=== PATIENT | female | born 1975 | race Caucasian/White ===

== ENCOUNTER 2018-09-10 16:55 | Inpatient (IN) | payer OTHER ==
[2018-09-10] MEDS: FLAGYL 500 MG IVPB 500 MG/100 ML BAG IV SCH ×2 (18:39→23:55)
[2018-09-10] MEDS: Lactated Ringers 1,000 ML IV SCH (18:39)
[2018-09-10] MEDS: Zofran 4 MG/2 ML VIAL IV PRN ×2 (19:49→23:55)
[2018-09-11] MEDS: TYLENOL 325 MG PO PRN ×2 (01:38→14:15)
[2018-09-11] MEDS: Lactated Ringers 1,000 ML IV SCH ×2 (05:42→16:52)
[2018-09-11] MEDS: FLAGYL 500 MG IVPB 500 MG/100 ML BAG IV SCH ×3 (05:42→17:00)
[2018-09-11] MEDS: Zofran 4 MG/2 ML VIAL IV PRN ×3 (05:43→16:53)
--- NOTE | 2018-09-11 08:08 | PCM.HP.ADD ---
Addendum to History & Physical - History & Physical Addendum Addendum to History & Physical: This certifies that the History & Physical in the electronic chart reflects the current health status of the patient. If there are changes in the H&P these changes/exceptions are listed as follows.
--- NOTE | 2018-09-11 08:42 | PCM.NOTE ---
Date and Time: 09/11/18 0839 Subjective Assessment: She has had no BMs since admission but has not eaten yet. Yesterday was fine until lunch then had diarrhea for 2.5 hours. adore po. afebrile. The flagyl gave her a headache the first 2 doses but after that has been fine. - Review of Systems Constitutional: No Fever Musculoskeletal: Back Pain (improved since yesterday) Objective Exam General Appearance: no apparent distress, alert Neurologic Exam: oriented x 3, cooperative Skin Exam: normal color, warm, dry, No rash Eye Exam: eyes nml inspection Respiratory Exam: normal breath sounds, lungs clear, No crackles/rales, No rhonchi, No wheezing Cardiovascular Exam: regular rate/rhythm, normal heart sounds, No murmur Gastrointestinal/Abdomen Exam: soft, normal bowel sounds, No tenderness, No distention, No mass, No guarding, No rebound Extremity Exam: normal inspection, No pedal edema, No swelling OBJECTIVE DATA Vital Signs: Vital Signs - 24 hr Temp Pulse Resp BP Pulse Ox 09/11/18 08:00 97.9 F 54 L 20 113/75 99 09/11/18 04:00 97.7 F 65 18 103/59 99 09/11/18 00:22 98.4 F 62 18 129/72 98 09/10/18 19:53 98.4 F 66 18 139/85 99 09/10/18 18:13 98.1 F 66 18 139/85 99 Pain Assessment - Last Documented Pain Intensity 8 Pain Scale Used 0-10 Pain Scale Intake and Output: Intake & Output 09/08/18 09/09/18 09/10/18 09/11/18 11:59 11:59 11:59 11:59 Intake Total 962 Balance 962 Weight 73.6 kg Radiology Exams: Radiology Procedures Category Date Time Status ABDOMEN 2 VIEW Routine Exams 09/10/18 18:45 Taken Assessment/Plan (1) Clostridium difficile diarrhea Current Visit: Yes Status: Acute Assessment & Plan: Her WBC were wnl yesterday. Has been on home dose of flagyl but unable to tolerate even TID. Tried po vancomycin but passed out and had hallucinations. Dificid was prescribed but cost her $400 so she was unable to get it. Code(s): A04.72 - ENTEROCOLITIS D/T CLOSTRIDIUM DIFFICILE, NOT SPCF RECUR
--- NOTE | 2018-09-11 08:44 | XRAY ---
Indication: C. difficile. Comparison: July 24, 2011. 2 views of the abdomen nonacute nonobstructed with mild fecal debris in the left hemicolon and cholecystectomy clips. No focal bowel dilatation or bowel wall thickening. Solid organs unremarkable. Osseous structures intact with mild degenerative changes of the lower lumbar spine. Lung bases are clear. Impression: Negative abdomen.
[2018-09-11] MEDS ORDERED: Ambien 10 MG PO PRN (09:37)
[2018-09-11] MEDS ORDERED: Ambien 5 MG Tablet PO PRN (09:39)
[2018-09-11] MEDS ORDERED: MEDICATION INTERVENTION MC SCH (09:45)
[2018-09-11] MEDS ORDERED: AMPHETAMINE PO SCH (10:00)
[2018-09-11] MEDS ORDERED: DEXTROAMPHETAMINE PO SCH (10:00)
[2018-09-11 11:34] LABS: Appearance SLIGHTLY CLOUDY (CLEAR); Bacteria RARE /HPF (NEGATIVE); Bilirubin NEGATIVE (NEGATIVE); Blood NEGATIVE Ery/ul (0-5); Epithelial Cells RARE /HPF (FEW); Glucose NEGATIVE (NEGATIVE); Ketones NEGATIVE (NEGATIVE); Leukocyte Esterase NEGATIVE (NEGATIVE); Mucus SLIGHT /HPF (NEGATIVE); Nitrite NEGATIVE (NEGATIVE); Protein,Urine Dip NEGATIVE (Negative); Specific Gravity 1.014 (1.005-1.025); Urobilinogen NEGATIVE mg/dL (0-1)
[2018-09-12] MEDS: FLAGYL 500 MG IVPB 500 MG/100 ML BAG IV SCH ×2 (00:20→05:36)
[2018-09-12] MEDS: Lactated Ringers 1,000 ML IV SCH (03:21)
[2018-09-12] MEDS: Zofran 4 MG/2 ML VIAL IV PRN (05:53)
[2018-09-12 06:20] LABS: BASOPHIL % 0.4 % (0.0-0.4); Basophil (Absolute #) 0.02 (0-0.4); Eosinophil % 2.9 % (0.00-5.0); Eosinophil (Absolute #) 0.14 (0-0.5); Granulocyte Absolute (ANC) 1.97 (1.4-6.9); Granulocytes % 41.4 % (36.0-66.0); Hematocrit 34.7 % (35-47); Hemoglobin 11.3 gm/dl (12.0-16.0); Lymphocyte (Absolute #) 2.05 (1.0-4.6); Lymphocytes % 43.1 % (24.0-44.0); Mean Cell Volume 90.6 fl (78-100); Mean Corpuscular Hemoglobin 29.5 pg (26-32); Mean Corpuscular Hgb Concent. 32.6 g/dl (32-36); Mean Platelet Volume 9.8 fl (6-9.5); Monocyte (Absolute #) 0.58 (0.0-1.3); Monocytes % 12.2 % (0.0-12.0); Platelet Count 282 K/mm3 (150-450); Red Blood Count 3.83 M/mm3 (4.1-5.4); Red Cell Distribution Width 14.1 % (11.5-14.0); White Blood Count 4.8 K/mm3 (4.0-10.5)
[2018-09-12 06:33] LABS: ANION GAP 10.6 MEQ/L (5-15); BLOOD UREA NITROGEN 6 mg/dL (7-17); CHLORIDE 107 mmol/L (98-107); Calcium 8.8 mg/dL (8.4-10.2); Carbon Dioxide 25 mmol/L (22-30); Creatinine 1 0.64 mg/dL (0.52-1.04); Glucose 88 mg/dL (74-106); MAGNESIUM 1.9 mg/dL (1.6-2.3); SODIUM 139 mmol/L (137-145)
[2018-09-12 07:06] VITALS: BP 107/55; PULSE 55; O2SAT 98
[2018-09-12] MEDS: TYLENOL 325 MG PO PRN (09:44)
--- NOTE | 2018-09-12 11:20 | PCM.DS ---
Discharge Summary Date of Admission: 09/10/18 17:47 Admitting Physician: CA MARINO Primary Care Provider: CA MARINO Allergies Allergies rabeprazole sodium [From Aciphex] Allergy (Mild, Verified 04/25/16 16:21) latex Allergy (Verified 04/25/16 16:21) pain meds Adverse Reaction (Severe, Uncoded 04/25/16 16:21) Nausea any pain med makes her vomit, and akes her [facility] Summary - Hospital Course Hospital Course: Pt is 42 yo female pt of mine who was admitted from office with C. diff; she was having diarrhea while on flagyl, but was only able to tolerated it BID. Tried to rx dificid which was too expensive. While in hospital on flagyl QID has been eating and having no diarrhea. Unable to tolerate po vancomycin at home. Will send home on po flagyl with zofran po as well. 7days of therapy. f /u with me early next week in ofc. - Vitals & Intake/Output Vital Signs: Vital Signs Temperature 98.3 F 09/12/18 07:05 Pulse Rate 55 L 09/12/18 07:05 Respiratory Rate 18 09/12/18 07:05 Blood Pressure 107/55 09/12/18 07:05 O2 Sat by Pulse Oximetry 98 09/12/18 07:05 Intake & Output: Intake & Output 09/09/18 09/10/18 09/11/18 09/12/18 11:59 11:59 11:59 11:59 Intake Total 962 4220 Output Total 1600 Balance 962 2620 Weight 73.6 kg 73.5 kg - Lab Result Diagrams: 09/12/18 05:40 09/12/18 05:40 Lab Results-Last 24 Hrs: Lab Results-Last 24 Hours 09/11/18 09/12/18 09/12/18 Range/Units 11:00 05:40 05:40 WBC 4.8 (4.0-10.5) K/mm3 RBC 3.83 L (4.1-5.4) M/mm3 Hgb 11.3 L (12.0-16.0) gm/dl Hct 34.7 L (35-47) % MCV 90.6 (78-100) fl MCH 29.5 (26-32) pg MCHC 32.6 (32-36) g/dl RDW 14.1 H (11.5-14.0) % Plt Count 282 (150-450) K/mm3 MPV 9.8 H (6-9.5) fl Gran % 41.4 (36.0-66.0) % Eos # (Auto) 0.14 (0-0.5) Absolute Lymphs (auto) 2.05 (1.0-4.6) Absolute Monos (auto) 0.58 (0.0-1.3) Lymphocytes % 43.1 (24.0-44.0) % Monocytes % 12.2 H (0.0-12.0) % Eosinophils % 2.9 (0.00-5.0) % Basophils % 0.4 (0.0-0.4) % Absolute Granulocytes 1.97 (1.4-6.9) Basophils # 0.02 (0-0.4) Sodium 139 (137-145) mmol/L Potassium 4.0 D (3.5-5.1) mmol/L Chloride 107 (98-107) mmol/L Carbon Dioxide 25 (22-30) mmol/L Anion Gap 10.6 (5-15) MEQ/L BUN 6 L (7-17) mg/dL Creatinine 0.64 (0.52-1.04) mg/dL Estimated GFR > 60.0 ML/MIN Glucose 88 (74-106) mg/dL Calcium 8.8 (8.4-10.2) mg/dL Magnesium 1.9 (1.6-2.3) mg/dL Urine Color YELLOW (YELLOW) Urine Appearance SLIGHTLY CLOUDY (CLEAR) Urine pH 7.0 (5-6) Ur Specific Ell[place] 1.014 (1.005-1.025) Urine Protein NEGATIVE (Negative) Urine Ketones NEGATIVE (NEGATIVE) Urine Blood NEGATIVE (0-5) Carrillo/ul Urine Nitrite NEGATIVE (NEGATIVE) Urine Bilirubin NEGATIVE (NEGATIVE) Urine Urobilinogen NEGATIVE (0-1) mg/dL Ur Leukocyte Esterase NEGATIVE (NEGATIVE) Urine WBC (Auto) NONE (0-5) /HPF Urine RBC (Auto) NONE (0-2) /HPF U Epithel Cells (Auto) RARE (FEW) /HPF Urine Bacteria (Auto) RARE (NEGATIVE) /HPF Urine Mucus (Auto) SLIGHT (NEGATIVE) /HPF Urine Culture Reflexed NO (NO) Urine Glucose NEGATIVE (NEGATIVE) mg/dL - Radiology Exams Ordered Rad Exams-Entire Visit: Radiology Procedures Category Date Time Status ABDOMEN 2 VIEW Routine Exams 09/10/18 18:45 Completed Discharge Exam General Appearance: no apparent distress, No obese Neurologic Exam: alert, oriented x 3 Skin Exam: normal color, warm, dry, No rash Respiratory Exam: normal breath sounds, lungs clear, No respiratory distress, No crackles/rales, No rhonchi, No wheezing Cardiovascular Exam: regular rate/rhythm, normal heart sounds, No murmur Gastrointestinal/Abdomen Exam: soft, normal bowel sounds, No tenderness, No distention, No mass, No guarding, No rebound Extremity Exam: normal inspection, No pedal edema, No swelling Final Diagnosis/Problem List - Final Discharge Diagnosis/Problem (1) Clostridium difficile diarrhea Current Visit: Yes Status: Acute Assessment & Plan: doing much better, I think she just needed to be adequately treated with flagyl. Home on flagyl 500 po QID with zofran prn. x 7d. Code(s): A04.72 - ENTEROCOLITIS D/T CLOSTRIDIUM DIFFICILE, NOT SPCF RECUR - Discharge Disposition: Home, Self-Care Condition: Stable Prescriptions: New Metronidazole 500 mg [Flagyl 500 MG] 500 mg PO QID #28 tablet Ondansetron ODT 4 MG [Zofran Odt 4 mg] 4 mg PO Q6H PRN PRN #30 tab.rapdis PRN Reason: Nausea Continue Zolpidem Tartrate [Ambien] 2.5 mg PO HS PRN PRN Reason: Insomnia Dextroamphetamine/Amphetamine [Adderall 15 mg Tablet] 30 mg PO DAILY Instructions: Clostridium difficile Follow up with: CA MARINO [Primary Care Provider] - 09/23/18 10:45 am Forms: Discharge Instructions
== END 2018-09-12 11:45 | disposition home or self-care (01) | DRG 373 ==
LOC: PREOBSVTOIN 17:04 → MED SURG 17:47
PROVIDERS: ADMIT Family Medicine; ATTEND Family Medicine
DX: A04.72 Enterocolitis due to Clostridium difficile, not specified as recurrent (principal); M54.5 Low back pain; L03.032 Cellulitis of left toe; Z79.899 Other long term (current) drug therapy
CPT/HCPCS: 36415; 74021; 80048; 81001; 83735; 85025; J2405; A9270-GY

== ENCOUNTER 2020-10-21 14:29 | Emergency (ER) | payer OTHER ==
[2020-10-21] MEDS ORDERED: Zofran 4 MG/2 ML VIAL IV ONE (14:57)
[2020-10-21] MEDS ORDERED: BABY ASPIRIN 81 MG CHEW PO ONE (14:57)
[2020-10-21] MEDS ORDERED: MORPHINE SULFATE 2 MG INJ IV ONE (14:57)
[2020-10-21] MEDS ORDERED: Pepcid 20 MG VIAL IV ONE ×2 (14:57→15:05)
[2020-10-21] MEDS ORDERED: DUONEB 0.5-3 MG/3 ml Neb IH ONE ×2 (14:59→15:12)
[2020-10-21] MEDS ORDERED: Zofran 4 MG/2 ML VIAL ONE (15:05)
[2020-10-21] MEDS ORDERED: BABY ASPIRIN 81 MG CHEW ONE (15:05)
[2020-10-21] MEDS ORDERED: MORPHINE SULFATE 2 MG INJ ONE (15:05)
--- NOTE | 2020-10-21 15:21 | XRAY ---
Indication: Chest pain. Comparison: June 16, 2019. Portable chest less inflated again demonstrating normal heart, lungs, and bony thorax.
[2020-10-21 15:27] LABS: ALBUMIN 4.2 g/dL (3.5-5.0); ALKALINE PHOSPHATASE 53 U/L (38-126); ANION GAP 12.9 MEQ/L (5-15); BLOOD UREA NITROGEN 7 mg/dL (7-17); CHLORIDE 106 mmol/L (98-107); CK-Creatinine Phosphokinase 49 U/L (30-135); Carbon Dioxide 23 mmol/L (22-30); Creatinine 1 0.63 mg/dL (0.52-1.04); EST GLOMERULAR FILTRATION RATE > 60.0 ML/MIN; Glucose 99 mg/dL (74-106); NT PRO BNP 65.3 pg/mL (0-450); Potassium 3.8 mmol/L (3.5-5.1); SGOT/AST 43 U/L (14-36); SGPT/ALT 30 U/L (0-35); SODIUM 138 mmol/L (137-145); Total Protein 7.2 g/dL (6.3-8.2)
[2020-10-21 15:30] LABS: Absolute Neutrophil Ct (ANC) 2.67 (1.4-6.9); BASOPHIL % 0.4 % (0.0-0.4); Basophil (Absolute #) 0.02 (0-0.4); Eosinophil % 2.4 % (0.00-5.0); Eosinophil (Absolute #) 0.13 (0-0.5); Hematocrit 37.4 % (35-47); Lymphocyte (Absolute #) 1.84 (1.0-4.6); Lymphocytes % 34.5 % (24.0-44.0); Mean Cell Volume 90.1 fl (78-100); Mean Corpuscular Hemoglobin 28.9 pg (26-32); Mean Corpuscular Hgb Concent. 32.1 g/dl (32-36); Mean Platelet Volume 10.1 fl (7.5-11.0); Monocyte (Absolute #) 0.68 (0.0-1.3); Monocytes % 12.7 % (0.0-12.0); Platelet Count 308 K/mm3 (150-450); Red Blood Count 4.15 M/mm3 (4.1-5.4); Red Cell Distribution Width 13.9 % (11.5-14.0); White Blood Count 5.3 K/mm3 (4.0-10.5)
--- NOTE | 2020-10-21 18:48 | ERPHSYRPT ---
- History of Present Illness Time Seen by Provider: 10/21/20 14:31 Historian: patient Exam Limitations: no limitations Patient Subjective Stated Complaint: Pt c/o of chest pain that began last night Triage Nursing Assessment: Pt brought to the ER by her , hypertensive, rates chest tightness as 7/10, pulses normal, skin n/w/d, no heart hx, doesn't appear to be in any distress Physician History: 44 years old female presented in the ER with chief complaint of substernal/central chest pain since yesterday. Patient report initially her blood pressure was elevated to 140s but her usual blood pressure is around 100 systolic. Pain was initially mild but gradually getting worse, dull to sharp in nature, nonradiating without any significant aggravating or relieving factors. Denies any associated palpitations or shortness of breath. No history of CAD in the past. No tobacco use. Denies any lower extremity swelling, long travel or hormone use. Timing/Duration: yesterday, gradual onset, worse Activities at Onset: rest Quality: sharpness Location: central Chest Pain Radiation: no radiation Severity of Pain-Max: moderate Severity of Pain-Current: moderate Modifying Factors: Improves With: nothing Associated Symptoms: denies symptoms Prior Chest Pain/Cardiac Workup: no prior chest pain, no prior cardiac workup Nitro Today/Relief: no nitro taken today Aspirin Treatment Today: no aspirin today Allergies/Adverse Reactions: rabeprazole sodium [From Aciphex] Allergy (Mild, Verified 10/21/20 14:37) latex Allergy (Verified 10/21/20 14:37) pain meds Adverse Reaction (Severe, Uncoded 10/21/20 14:37) Nausea any pain med makes her vomit, and akes her loopy Home Medications: Dextroamphetamine/Amphetamine [Adderall 15 mg Tablet] 30 mg PO DAILY 04/25/16 [History] Zolpidem Tartrate [Ambien] 2.5 mg PO HS PRN 04/25/16 [History] Hx Tetanus, Diphtheria Vaccination/Date Given: Yes (up to date) Hx Influenza Vaccination/Date Given: No Hx Pneumococcal Vaccination/Date Given: No Travel Risk - International Travel Have you traveled outside of the country in past 3 weeks: No - Coronavirus Screening Are you exhibiting any of the following symptoms?: No Close contact with a COVID-19 positive Pt in past 14-21 Days: No - Vaccine Status Have you recieved a Covid-19 vaccination: No - Review of Systems Constitutional: No Symptoms Eyes: No Symptoms Ears, Nose, & Throat: No Symptoms Respiratory: No Symptoms Cardiac: Chest Pain Abdominal/Gastrointestinal: No Symptoms Genitourinary Symptoms: No Symptoms Musculoskeletal: No Symptoms Skin: No Symptoms Neurological: No Symptoms Psychological: No Symptoms Endocrine: No Symptoms Hematologic/Lymphatic: No Symptoms Immunological/Allergic: No Symptoms - Past Medical History Pertinent Past Medical History: Yes Neurological History: No Pertinent History ENT History: No Pertinent History Cardiac History: No Pertinent History Respiratory History: No Pertinent History Endocrine Medical History: No Pertinent History Musculoskeletal History: Other GI Medical History: No Pertinent History History: No Pertinent History Psycho-Social History: Attention Deficit Disorder Female Reproductive Disorders: No Pertinent History Other Medical History: gallito. ovarian cyst - Past Surgical History Past Surgical History: Yes Neuro Surgical History: No Pertinent History Cardiac: No Pertinent History Respiratory: No Pertinent History Gastrointestinal: Cholecystectomy Genitourinary: No Pertinent History Musculoskeletal: Other Female Surgical History: Tubal Ligation, Other Other Surgical History: back surgery - Social History Smoking Status: Never smoker Exposure to second hand smoke: No Drug Use: none Patient Lives Alone: No - Female History Hx Now: No (hysterectomy) - Nursing Vital Signs Nursing Vital Signs: Initial Vital Signs Temperature 98.2 F 10/21/20 14:30 Pulse Rate 73 10/21/20 14:30 Respiratory Rate 24 10/21/20 14:30 Blood Pressure 153/93 10/21/20 14:30 O2 Sat by Pulse Oximetry 98 10/21/20 14:30 Pain Scale Pain Intensity 0 - Physical Exam General Appearance: no apparent distress, alert, anxiety Eye Exam: PERRL/EOMI, eyes nml inspection Ears, Nose, Throat Exam: normal ENT inspection, TMs normal, pharynx normal Neck Exam: normal inspection, non-tender, supple, full range of motion Respiratory Exam: normal breath sounds, lungs clear Cardiovascular Exam: regular rate/rhythm, normal heart sounds Gastrointestinal/Abdomen Exam: soft, normal bowel sounds Back Exam: normal inspection, normal range of motion Extremity Exam: normal inspection, normal range of motion, pelvis stable Neurologic Exam: alert, oriented x 3, cooperative Skin Exam: normal color SpO2 Interpretation: normal SpO2: 98 O2 Delivery: Room Air - Course EKG Interpreted by Me: RATE (71), Sinus Rhythm, NORMAL AXIS, NORMAL INTERVALS, NORMAL QRS Ordered Tests: Active Orders 24 hr Category Date Time Status Tax Collector STAT Care 10/21/20 14:58 Active EKG-ER Only STAT Care 10/21/20 14:57 Active IV Insertion STAT Care 10/21/20 14:57 Active CHEST 1 VIEW (PORTABLE) Stat Exams 10/21/20 14:58 Completed CBC W DIFF Stat Lab 10/21/20 15:10 Completed CK-Creatinine Phosphokinase Stat Lab 10/21/20 15:10 Completed CMP Stat Lab 10/21/20 15:10 Completed D-DIMER QUANTITATIVE Stat Lab 10/21/20 15:10 Completed NT PRO BNP Stat Lab 10/21/20 15:10 Completed TROPONIN Q3H Lab 10/21/20 15:10 Completed TROPONIN Q3H Lab 10/21/20 18:21 Completed TROPONIN Q3H Lab 10/21/20 21:00 Ordered TROPONIN Q3H Lab 10/22/20 00:00 Ordered TROPONIN Q3H Lab 10/22/20 03:00 Ordered Respiratory Therapy Assessment DAILY RT 10/21/20 15:24 Completed Medication Summary Discontinued Medications Generic Name Dose Route Start Last Admin Trade Name Freq PRN Reason Stop Dose Admin Albuterol/Ipratropium 3 ml 10/21/20 14:59 10/21/20 15:23 Duoneb 0.5-3 Mg/3 Ml Neb IH 10/21/20 15:00 3 ml STAT ONE Administration Albuterol/Ipratropium Confirm 10/21/20 15:12 Duoneb 0.5-3 Mg/3 Ml Neb Administered 10/21/20 15:13 Dose 3 ml IH .STK-MED ONE Aspirin 324 mg 10/21/20 14:57 10/21/20 15:07 Baby Aspirin 81 Mg Chew PO 10/21/20 14:58 324 mg STAT ONE Administration Aspirin Confirm 10/21/20 15:05 Baby Aspirin 81 Mg Chew Administered 10/21/20 15:06 Dose 324 mg .ROUTE .STK-MED ONE Famotidine 20 mg 10/21/20 14:57 10/21/20 15:07 Pepcid 20 Mg Vial IV 10/21/20 14:58 20 mg STAT ONE Administration Famotidine Confirm 10/21/20 15:05 Pepcid 20 Mg Vial Administered 10/21/20 15:06 Dose 20 mg IV .STK-MED ONE Morphine Sulfate 2 mg 10/21/20 14:57 10/21/20 15:07 Morphine Sulfate 2 Mg Inj IV 10/21/20 14:58 2 mg STAT ONE Administration Morphine Sulfate Confirm 10/21/20 15:05 Morphine Sulfate 2 Mg Inj Administered 10/21/20 15:06 Dose 2 mg .ROUTE .STK-MED ONE Ondansetron HCl 4 mg 10/21/20 14:57 10/21/20 15:07 Zofran 4 Mg/2 Ml Vial IV 10/21/20 14:58 4 mg STAT ONE Administration Ondansetron HCl Confirm 10/21/20 15:05 Zofran 4 Mg/2 Ml Vial Administered 10/21/20 15:06 Dose 4 mg .ROUTE .STK-MED ONE Lab/Rad Data: Laboratory Result Diagrams 10/21/20 15:10 10/21/20 15:10 Laboratory Results 10/21/20 10/21/20 10/21/20 Range/Units 18:21 15:10 15:10 WBC (4.0-10.5) K/mm3 RBC (4.1-5.4) M/mm3 Hgb (12.0-16.0) gm/dl Hct (35-47) % MCV (78-100) fl MCH (26-32) pg MCHC (32-36) g/dl RDW (11.5-14.0) % Plt Count (150-450) K/mm3 MPV (7.5-11.0) fl Gran % (36.0-66.0) % Eos # (Auto) (0-0.5) Absolute Lymphs (auto) (1.0-4.6) Absolute Monos (auto) (0.0-1.3) Lymphocytes % (24.0-44.0) % Monocytes % (0.0-12.0) % Eosinophils % (0.00-5.0) % Basophils % (0.0-0.4) % Absolute Granulocytes (1.4-6.9) Basophils # (0-0.4) D-Dimer 223 (215-500) ng/mL Sodium (137-145) mmol/L Potassium (3.5-5.1) mmol/L Chloride (98-107) mmol/L Carbon Dioxide (22-30) mmol/L Anion Gap (5-15) MEQ/L BUN (7-17) mg/dL Creatinine (0.52-1.04) mg/dL Estimated GFR ML/MIN Glucose (74-106) mg/dL Calcium (8.4-10.2) mg/dL Total Bilirubin (0.2-1.3) mg/dL AST (14-36) U/L ALT (0-35) U/L Alkaline Phosphatase (38-126) U/L Creatine Kinase (30-135) U/L Troponin I 0.012 < 0.012 (0.000-0.034) ng/mL NT-Pro-B Natriuret Pep (0-450) pg/mL Serum Total Protein (6.3-8.2) g/dL Albumin (3.5-5.0) g/dL 10/21/20 10/21/20 Range/Units 15:10 15:10 WBC 5.3 (4.0-10.5) K/mm3 RBC 4.15 (4.1-5.4) M/mm3 Hgb 12.0 (12.0-16.0) gm/dl Hct 37.4 (35-47) % MCV 90.1 (78-100) fl MCH 28.9 (26-32) pg MCHC 32.1 (32-36) g/dl RDW 13.9 (11.5-14.0) % Plt Count 308 (150-450) K/mm3 MPV 10.1 (7.5-11.0) fl Gran % 50.0 (36.0-66.0) % Eos # (Auto) 0.13 (0-0.5) Absolute Lymphs (auto) 1.84 (1.0-4.6) Absolute Monos (auto) 0.68 (0.0-1.3) Lymphocytes % 34.5 (24.0-44.0) % Monocytes % 12.7 H (0.0-12.0) % Eosinophils % 2.4 (0.00-5.0) % Basophils % 0.4 (0.0-0.4) % Absolute Granulocytes 2.67 (1.4-6.9) Basophils # 0.02 (0-0.4) D-Dimer (215-500) ng/mL Sodium 138 (137-145) mmol/L Potassium 3.8 (3.5-5.1) mmol/L Chloride 106 (98-107) mmol/L Carbon Dioxide 23 (22-30) mmol/L Anion Gap 12.9 (5-15) MEQ/L BUN 7 (7-17) mg/dL Creatinine 0.63 (0.52-1.04) mg/dL Estimated GFR > 60.0 ML/MIN Glucose 99 (74-106) mg/dL Calcium 9.0 (8.4-10.2) mg/dL Total Bilirubin 0.40 (0.2-1.3) mg/dL AST 43 H (14-36) U/L ALT 30 (0-35) U/L Alkaline Phosphatase 53 (38-126) U/L Creatine Kinase 49 (30-135) U/L Troponin I (0.000-0.034) ng/mL NT-Pro-B Natriuret Pep 65.3 (0-450) pg/mL Serum Total Protein 7.2 (6.3-8.2) g/dL Albumin 4.2 (3.5-5.0) g/dL - Progress Progress: improved Air Movement: good Progress Note: 10/21/20 19:17 Rule out acute coronary syndrome, pneumonia, pneumothorax, pulmonary embolism. Low suspicion for dissection. Low heart score. Do not think patient needs to be admitted or further work-up, recommended outpatient primary care and cardiology follow-up. Discussed signs symptoms of worsening needing return to ER which she seemed understanding. Blood Culture(s) Obtained: No Antibiotics given: No Counseled pt/family regarding: lab results, diagnosis, need for follow-up, rad results - Departure Departure Disposition: Home Clinical Impression: Atypical chest pain Condition: Stable Critical Care Time: No Referrals: CA SONI [Primary Care Provider] - (1-2 days for reevaluation) ADAMA BENSON [CONSULTING PHYSICIAN] - (1-2 days for reevaluation) Instructions: Chest Pain (DC) Additional Instructions: Take Tylenol/ibuprofen as needed for pain. Follow-up with primary care and cardiology for reevaluation. Return to ER for worsening pain, difficulty breathing etc.
[2020-10-21 19:18] VITALS: O2SAT 98
[2020-10-21 19:27] VITALS: BP 117/76; PULSE 58
== END 2020-10-21 19:33 | disposition home or self-care (01) ==
LOC: ED 14:29
DX: R07.89 Other chest pain (principal)
CPT/HCPCS: 36000; 36415; 71045; 80053; 82550; 83880; 84484; 85025; 85379; 93005; 93041; 94640; 96374; 96375; 99284; J2270; J2405; A9270-GY

== ENCOUNTER 2022-03-18 16:27 | Emergency (ER) | payer OTHER ==
--- NOTE | 2022-03-18 16:33 | ERPHSYRPT ---
- History of Present Illness Time Seen by Provider: 03/18/22 16:33 Historian: patient Exam Limitations: no limitations Physician History: This is a 46-year-old white female patient who says she has had constipation for several days. This is not uncommon for her. However, she does not typically have right-sided abdominal pain. That began yesterday and then was worse this morning. Patient has a history of Crohn's disease. she is not taking any of her Crohn's medication. She stopped them on her own. 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 Patient has had intermittent nausea but does not have nausea now. She is had no vomiting or diarrhea. Patient's primary care provider is Dr. Gilson Ceja. Patient also states she is due for colonoscopy. Its been over 2-1/2 years since her last colonoscopy. Patient has had a partial hysterectomy in the past as well as a cholecystectomy. Activities at Onset: none Quality: aching Abdominal Pain Onset Location: RUQ, RLQ Pain Radiation: no radiation Severity of Pain-Max: moderate Severity of Pain-Current: mild (Mild to moderate) Modifying Factors: Improves With: nothing Associated Symptoms: denies symptoms Previous symptoms: no prior history, no recent treatment Allergies/Adverse Reactions: rabeprazole sodium [From Aciphex] Allergy (Mild, Verified 03/18/22 17:13) latex Allergy (Verified 03/18/22 17:13) pain meds Adverse Reaction (Severe, Uncoded 03/18/22 17:13) Nausea any pain med makes her vomit, and akes her loopy Home Medications: Dextroamphetamine/Amphetamine [Adderall 15 mg Tablet] 30 mg PO DAILY 04/25/16 [History] Zolpidem Tartrate [Ambien] 2.5 mg PO HS PRN 04/25/16 [History] Hx Tetanus, Diphtheria Vaccination/Date Given: Yes (up to date) Hx Influenza Vaccination/Date Given: No Hx Pneumococcal Vaccination/Date Given: No Travel Risk - International Travel Have you traveled outside of the country in past 3 weeks: No - Coronavirus Screening Are you exhibiting any of the following symptoms?: No Close contact with a COVID-19 positive Pt in past 14-21 Days: No - Vaccine Status Have you recieved a Covid-19 vaccination: No - Review of Systems Constitutional: No Symptoms Eyes: No Symptoms Ears, Nose, & Throat: Nose Pain Respiratory: No Symptoms Cardiac: No Symptoms Abdominal/Gastrointestinal: Abdominal Pain, Nausea (Side intermittent), Con stipation (Common for her to have this), No Vomiting, No Diarrhea Genitourinary Symptoms: No Symptoms Musculoskeletal: No Symptoms Skin: No Symptoms Neurological: No Symptoms Psychological: No Symptoms Endocrine: No Symptoms Hematologic/Lymphatic: No Symptoms Immunological/Allergic: No Symptoms All Other Systems: Reviewed and Negative - Past Medical History Pertinent Past Medical History: Yes Neurological History: No Pertinent History ENT History: No Pertinent History Cardiac History: No Pertinent History Respiratory History: No Pertinent History Endocrine Medical History: No Pertinent History Musculoskeletal History: Other GI Medical History: No Pertinent History History: No Pertinent History Psycho-Social History: Attention Deficit Disorder Female Reproductive Disorders: No Pertinent History Other Medical History: gallito. ovarian cyst - Past Surgical History Past Surgical History: Yes Neuro Surgical History: No Pertinent History Cardiac: No Pertinent History Respiratory: No Pertinent History Gastrointestinal: Cholecystectomy Genitourinary: No Pertinent History Musculoskeletal: Other Female Surgical History: Tubal Ligation, Other Other Surgical History: back surgery - Social History Smoking Status: Never smoker Exposure to second hand smoke: No Drug Use: none Patient Lives Alone: No - Nursing Vital Signs Nursing Vital Signs: Initial Vital Signs Temperature 98.3 F 03/18/22 16:54 Pulse Rate 88 03/18/22 16:54 Respiratory Rate 18 03/18/22 16:54 Blood Pressure 132/72 03/18/22 16:54 O2 Sat by Pulse Oximetry 98 03/18/22 16:54 Pain Scale Pain Intensity 5 - Physical Exam General Appearance: no apparent distress, alert, anxiety Eye Exam: PERRL/EOMI, eyes nml inspection Ears, Nose, Throat Exam: normal ENT inspection, moist mucous membranes Neck Exam: normal inspection, non-tender, supple, full range of motion Respiratory Exam: normal breath sounds, lungs clear, airway intact, No chest tenderness, No respiratory distress Cardiovascular Exam: regular rate/rhythm, normal heart sounds, normal peripheral pulses Gastrointestinal/Abdomen Exam: soft, normal bowel sounds, tenderness (Mild tenderness to palpation right mid to right lower quadrant), guarding (Mild with palpation in the right mid to lower quadrant on the right side), No rebound Pelvic Exam: not done Rectal Exam: not done Back Exam: normal inspection, normal range of motion, No CVA tenderness, No vertebral tenderness Extremity Exam: normal inspection, normal range of motion, pelvis stable Neurologic Exam: alert, oriented x 3, cooperative, technical systems architect II-XII nml as tested, normal mood/affect, nml cerebellar function, nml station & gait, sensation nml Skin Exam: normal color, warm, dry Lymphatic Exam: No adenopathy SpO2 Interpretation: normal O2 Delivery: Room Air - Course Nursing assessment & vital signs reviewed: Yes Ordered Tests: Active Orders 24 hr Category Date Time Status IV Insertion STAT Care 03/18/22 17:18 Active ABDOMEN AND PELVIS W/0 CONTRAS [CT] Stat Exams 03/18/22 17:18 Taken AMYLASE Stat Lab 03/18/22 17:38 Completed CBC W DIFF Stat Lab 03/18/22 17:38 Completed CMP Stat Lab 03/18/22 17:38 Completed LIPASE Stat Lab 03/18/22 17:38 Completed UA W/RFX CULTURE Stat Lab 03/18/22 17:38 Completed Lab/Rad Data: Laboratory Result Diagrams 03/18/22 17:38 03/18/22 17:38 Laboratory Results 03/18/22 03/18/22 03/18/22 Range/Units 17:38 17:38 17:38 WBC 6.6 (4.0-10.5) x10^3/uL RBC 4.23 (4.1-5.4) x10^6/uL Hgb 12.1 (12.0-16.0) g/dL Hct 37.1 (35-47) % MCV 87.7 (78-100) fL MCH 28.6 (26-32) pg MCHC 32.6 (32-36) g/dL RDW 14.0 (11.5-14.0) % Plt Count 294 (150-450) x10^3/uL MPV 9.5 (7.5-11.0) fL Gran % 52.4 (36.0-66.0) % Immature Gran % (Auto) 0.5 H (0.00-0.4) % Nucleat RBC Rel Count 0.0 (0.00-0.1) % Eos # (Auto) 0.13 (0-0.5) x10^3/uL Immature Gran # (Auto) 0.03 (0.00-0.03) x10^3u/L Absolute Lymphs (auto) 2.24 (1.0-4.6) x10^3/uL Absolute Monos (auto) 0.70 (0.0-1.3) x10^3/uL Absolute Nucleated RBC 0.00 (0.00-0.01) x10^3u/L Lymphocytes % 34.0 (24.0-44.0) % Monocytes % 10.6 (0.0-12.0) % Eosinophils % 2.0 (0.00-5.0) % Basophils % 0.5 (0.0-0.4) % Absolute Granulocytes 3.46 (1.4-6.9) x10^3/uL Basophils # 0.03 (0-0.4) x10^3/uL Sodium 135 L (137-145) mmol/L Potassium 3.7 (3.5-5.1) mmol/L Chloride 106 (98-107) mmol/L Carbon Dioxide 23 (22-30) mmol/L Anion Gap 10.1 (5-15) MEQ/L BUN 9 (7-17) mg/dL Creatinine 0.63 (0.52-1.04) mg/dL Estimated GFR > 60.0 ML/MIN Glucose 83 (74-106) mg/dL Calcium 8.8 (8.4-10.2) mg/dL Total Bilirubin 0.60 (0.2-1.3) mg/dL AST 33 (14-36) U/L ALT 35 (0-35) U/L Alkaline Phosphatase 65 (38-126) U/L Serum Total Protein 7.4 (6.3-8.2) g/dL Albumin 4.3 (3.5-5.0) g/dL Amylase 66 (30-110) U/L Lipase 78 (23-300) U/L Urinalys Dipstick Clnc MAIN LAB Urine Color YELLOW (YELLOW) Urine Appearance CLEAR (CLEAR) Urine pH 5.5 (5-6) Ur Specific [place] >=1.030 (1.005-1.025) POC Urine Protein Conf NEGATIVE (Negative) Urine Ketones NEGATIVE (NEGATIVE) Urine Nitrite NEGATIVE (NEGATIVE) Urine Bilirubin NEGATIVE (NEGATIVE) Urine Urobilinogen 0.2 (0-1) mg/dL Urine Leukocytes NEGATIVE (NEGATIVE) Urine WBC (Auto) NONE (0-5) /HPF Urine RBC (Auto) NONE (0-2) /HPF U Epithel Cells (Auto) RARE (FEW) /HPF Urine Bacteria (Auto) NONE SEEN (NEGATIVE) /HPF Urine RBC NEGATIVE (0-5) Carrillo/ul Urine Mucus (Auto) SLIGHT (NEGATIVE) /HPF Ur Culture Indicated? NO Urine Glucose NEGATIVE (NEGATIVE) mg/dL - Progress Progress: unchanged Progress Note: 03/18/22 18:47 CAT scan of the head without contrast shows no acute intra-abdominal or intrapelvic findings. 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 Follow-up with your public utilities sales representative for further evaluation management.
[2022-03-18 17:14] VITALS: O2SAT 98
[2022-03-18 17:42] LABS: Absolute Neutrophil Ct (ANC) 3.46 x10^3/uL (1.4-6.9); Basophil (Absolute #) 0.03 x10^3/uL (0-0.4); Eosinophil (Absolute #) 0.13 x10^3/uL (0-0.5); Hematocrit 37.1 % (35-47); Hemoglobin 12.1 g/dL (12.0-16.0); Lymphocyte (Absolute #) 2.24 x10^3/uL (1.0-4.6); Mean Cell Volume 87.7 fL (78-100); Mean Corpuscular Hemoglobin 28.6 pg (26-32); Mean Corpuscular Hgb Concent. 32.6 g/dL (32-36); Mean Platelet Volume 9.5 fL (7.5-11.0); Monocytes % 10.6 % (0.0-12.0); Neutrophil % 52.4 % (36.0-66.0); Platelet Count 294 x10^3/uL (150-450); Red Blood Count 4.23 x10^6/uL (4.1-5.4); White Blood Count 6.6 x10^3/uL (4.0-10.5)
[2022-03-18 17:45] LABS: Appearance CLEAR (CLEAR); Bilirubin NEGATIVE (NEGATIVE); Dipstick done @ ? MAIN LAB; Glucose NEGATIVE (NEGATIVE); Ketones NEGATIVE (NEGATIVE); Nitrite NEGATIVE (NEGATIVE); Ph 5.5 (5-6); Protein,Urine Dip NEGATIVE (Negative); RBC NEGATIVE Ery/ul (0-5); Specific Gravity >=1.030 (1.005-1.025); Urobilinogen 0.2 mg/dL (0-1)
[2022-03-18 17:46] LABS: Bacteria NONE SEEN /HPF (NEGATIVE); Epithelial Cells RARE /HPF (FEW); Mucus SLIGHT /HPF (NEGATIVE); Urine Cultured Indicated? NO
[2022-03-18 17:55] LABS: ALBUMIN 4.3 g/dL (3.5-5.0); ALKALINE PHOSPHATASE 65 U/L (38-126); AMYLASE 66 U/L (30-110); ANION GAP 10.1 MEQ/L (5-15); BLOOD UREA NITROGEN 9 mg/dL (7-17); CHLORIDE 106 mmol/L (98-107); Calcium 8.8 mg/dL (8.4-10.2); Carbon Dioxide 23 mmol/L (22-30); Creatinine 1 0.63 mg/dL (0.52-1.04); EST GLOMERULAR FILTRATION RATE > 60.0 ML/MIN; Glucose 83 mg/dL (74-106); LIPASE 78 U/L (23-300); Potassium 3.7 mmol/L (3.5-5.1); SGOT/AST 33 U/L (14-36); SGPT/ALT 35 U/L (0-35); SODIUM 135 mmol/L (137-145); Total Protein 7.4 g/dL (6.3-8.2)
[2022-03-18 18:53] VITALS: BP 115/68; PULSE 71
--- NOTE | 2022-03-18 19:41 | XRAY ---
Indication: Right lower quadrant pain. History Crohn's. Multiple contiguous axial images obtained through the abdomen and pelvis without contrast. Comparison: April 25, 2016 Lung bases clear. Heart not enlarged. Noncontrasted stomach and bowel loops appear nonobstructed with normal appendix. Mild diffuse scattered colonic fecal debris throughout, less than before. Interval hysterectomy. Again cholecystectomy. No free fluid/air. Remaining liver, pancreas, spleen, adrenal glands, kidneys, ureters, bladder, and aorta are unremarkable for noncontrast exam. Osseous structures intact with minimal degenerative changes throughout the spine. Impression: 1. Mild diffuse fecal stasis. 2. Remaining CT abdomen/pelvis without contrast exam is negative. Comment: Preliminary interpretation made by C. No critical discrepancy.
== END 2022-03-18 19:04 | disposition home or self-care (01) ==
LOC: ED 16:27
DX: R10.31 Right lower quadrant pain (principal); R10.11 Right upper quadrant pain; Z79.899 Other long term (current) drug therapy; Z28.310 Unvaccinated for COVID-19
CPT/HCPCS: 36000; 36415; 74176; 80053; 81015; 82150; 83690; 85025; 99283

== ENCOUNTER 2023-02-19 20:35 | Emergency (ER) | payer OTHER ==
[2023-02-19 20:50] LABS: Absolute Neutrophil Ct (ANC) 4.07 x10^3/uL (1.4-6.9); BASOPHIL % 0.3 % (0.0-0.4); Basophil (Absolute #) 0.02 x10^3/uL (0-0.4); Eosinophil % 0.1 % (0.00-5.0); Eosinophil (Absolute #) 0.01 x10^3/uL (0-0.5); Hematocrit 38.2 % (35-47); Hemoglobin 12.4 g/dL (12.0-16.0); IMMATURE GRAN # 0.02 x10^3u/L (0.00-0.03); IMMATURE GRAN % 0.3 % (0.00-0.4); Lymphocyte (Absolute #) 2.71 x10^3/uL (1.0-4.6); Lymphocytes % 35.2 % (24.0-44.0); Mean Cell Volume 87.8 fL (78-100); Mean Corpuscular Hemoglobin 28.5 pg (26-32); Mean Corpuscular Hgb Concent. 32.5 g/dL (32-36); Mean Platelet Volume 9.3 fL (7.5-11.0); Monocyte (Absolute #) 0.86 x10^3/uL (0.0-1.3); Monocytes % 11.2 % (0.0-12.0); Neutrophil % 52.9 % (36.0-66.0); Platelet Count 346 x10^3/uL (150-450); Red Blood Count 4.35 x10^6/uL (4.1-5.4); Red Cell Distribution Width 13.9 % (11.5-14.0); White Blood Count 7.7 x10^3/uL (4.0-10.5)
[2023-02-19 21:04] LABS: ACETAMINOPHEN < 10 ug/ml (10-30); ALBUMIN 4.2 g/dL (3.5-5.0); ALKALINE PHOSPHATASE 76 U/L (38-126); ANION GAP 14.8 MEQ/L (5-15); BLOOD UREA NITROGEN 8 mg/dL (7-17); CHLORIDE 107 mmol/L (98-107); Calcium 8.5 mg/dL (8.4-10.2); Carbon Dioxide 20 mmol/L (22-30); Creatinine 1 0.68 mg/dL (0.52-1.04); EST GLOMERULAR FILTRATION RATE > 60.0 ML/MIN; ETHYL ALCOHOL < 10 mg/dL (0-10); Glucose 105 mg/dL (74-106); Potassium 3.6 mmol/L (3.5-5.1); SALICYLATE < 1.0 mg/dL (2-20); SGOT/AST 50 U/L (14-36); SGPT/ALT 54 U/L (0-35); SODIUM 138 mmol/L (137-145); Total Protein 7.2 g/dL (6.3-8.2)
[2023-02-19 21:05] LABS: INR 0.93 (0.8-3.0); PROTIME 10.2 SECONDS (9.4-12.5); PTT 25.8 SECONDS (25.1-36.5)
[2023-02-19 21:35] LABS: Appearance Clear (Clear); Bacteria None Seen /HPF (None Seen); Bilirubin Negative (Negative); Blood Negative (Negative); Epithelial Cells None Seen /HPF (None Seen); Glucose, Urine Negative (Negative); Hyaline Casts NONE SEEN /LPF (0-2); Ketones Negative (Negative); Leukocyte Esterase Negative (Negative); Nitrite Negative (Negative); Protein,Urine Dip Negative (Negative); RBC 0-2 /HPF (0-5); Urobilinogen 0.2 mg/dL (0.2); WBC 0-2 /HPF (0-5)
--- NOTE | 2023-02-19 21:40 | XRAY ---
CLINICAL HISTORY:Altered COMPARISON:None. TECHNIQUE:An axial non-contrast CT scan of the brain was performed from the skull base to the high parietal region. CTDI: 53.92 mGy, DLP:881.65 mGy*cm. FINDINGS: The visualized brain parenchyma shows a normal appearance. Delvalle-white matter differentiation is maintained. No evidence of any infarction. No midline shifts or deformity. No intracerebral or extra axial hematoma. Normal size and configuration of the cerebral ventricles. Normal CT appearance of the posterior fossa structures namely the cerebellar hemispheres, brainstem, and cerebellar peduncles. The IACs are unremarkable. The cerebello-pontine angles are clear. The osseous structures in the skull base are unremarkable. No definite calvarium fractures. The scanned paranasal sinuses are clear. IMPRESSION: 1. Normal CT study of the brain without contrast. 2. If clinical suspicion persists MRI with diffusion restriction can be done for further management. Electronically Signed by: Will Salinas MD. (02/19/2023 20:40:10 [employer])
[2023-02-19 21:45] LABS: ADD URINE CULTURE? NO (NO)
--- NOTE | 2023-02-19 21:46 | ERPHSYRPT ---
- History of Present Illness Source: family Exam Limitations: clinical condition Patient Subjective Stated Complaint: per pt has been sick with flu like symptoms for about 4 days and he came into the house from being outside and he states patient was "out of it" Triage Nursing Assessment: pt carried to cot by ed staff, pt lethargic, responding to verbal stimuli only, fsbs 116, afebrile, vitals wnl, handgrips equal and strong bilateral, pupils PERRL, after IVs and murcia insertion patient is A&O x3 Physician History: 47 yo WF brought to ER by due to near syncope/altered LOC which occurred at 19:00 while she was sitting in her chair. states that that she has not been feeling well today due to a cough/coryza. Pt arrived to ER lethargic w a good airway and good vital signs. Pt rushed to CT, and CT head stroke protocol which was negative. Glucose WNL upon arrival. Pt quickly started to become more awake after ER arrival. She denies chest pain/focal weakness/N/V/D/melena/hematochezia/new meds. states that pt has had dyspnea for 1year w extensive negative work up. Timing/Duration: today (19:00) Severity: moderate Character of Deficits: other (Near syncope/altered LOC) Deficits: no difficulties Baseline/Normal Cognition: alert oriented x 3 Current Cognition: alert but confused Baseline Gait: walks w/o assistance Associated Symptoms: confusion Allergies/Adverse Reactions: gabapentin Allergy (Severe, Verified 02/20/23 01:18) Hives rabeprazole sodium [From Aciphex] Allergy (Mild, Verified 02/19/23 20:40) latex Allergy (Verified 02/19/23 20:40) pain meds Adverse Reaction (Severe, Uncoded 02/19/23 20:40) Nausea any pain med makes her vomit, and akes her loopy Home Medications: Dextroamphetamine/Amphetamine [Adderall 15 mg Tablet] 30 mg PO DAILY 04/25/16 [History] Zolpidem Tartrate [Ambien] 10 mg PO HS PRN 04/25/16 [History] lisinopriL [Lisinopril] 5 mg PO DAILY 02/19/23 [History] Hx Tetanus, Diphtheria Vaccination/Date Given: No (up to date) Hx Influenza Vaccination/Date Given: No Hx Pneumococcal Vaccination/Date Given: No Travel Risk - International Travel Have you traveled outside of the country in past 3 weeks: No - Coronavirus Screening Are you exhibiting any of the following symptoms?: No Close contact with a COVID-19 positive Pt in past 14-21 Days: No - Vaccine Status Have you recieved a Covid-19 vaccination: No - Review of Systems Constitutional: No Symptoms, Fatigue, Lethargy, Malaise Eyes: No Symptoms Ears, Nose, & Throat: No Symptoms, Nose Congestion, Nose Discharge Respiratory: No Symptoms, Cough Cardiac: No Symptoms Abdominal/Gastrointestinal: No Symptoms Genitourinary Symptoms: No Symptoms Musculoskeletal: No Symptoms Skin: No Symptoms Neurological: Lethargy Psychological: No Symptoms Endocrine: No Symptoms Hematologic/Lymphatic: No Symptoms Immunological/Allergic: No Symptoms - Past Medical History Pertinent Past Medical History: Yes Neurological History: No Pertinent History ENT History: No Pertinent History Cardiac History: Hypertension Respiratory History: No Pertinent History Endocrine Medical History: No Pertinent History Musculoskeletal History: Other GI Medical History: No Pertinent History History: No Pertinent History Psycho-Social History: Attention Deficit Disorder Female Reproductive Disorders: No Pertinent History Other Medical History: gallito. ovarian cyst - Past Surgical History Past Surgical History: Yes Neuro Surgical History: No Pertinent History Cardiac: No Pertinent History Respiratory: No Pertinent History Gastrointestinal: Cholecystectomy Genitourinary: No Pertinent History Musculoskeletal: Other Female Surgical History: Hysterectomy, Tubal Ligation, Other Other Surgical History: back surgery - Social History Smoking Status: Never smoker Exposure to second hand smoke: No Drug Use: none Patient Lives Alone: No - Female History Hx Last Menstrual Period: hysterectomy Hx Now: No - Nursing Vital Signs Nursing Vital Signs: Initial Vital Signs Temperature 97.5 F 02/19/23 20:35 Pulse Rate 86 02/19/23 20:35 Respiratory Rate 18 02/19/23 20:35 Blood Pressure 127/87 02/19/23 20:35 O2 Sat by Pulse Oximetry 100 02/19/23 20:35 Pain Scale Pain Intensity 0 WNL - [place] Coma Scale Best Eye Response ([place]): (4) open spontaneously Best Verbal Response ([place]): (4) confused conversation Best Motor Response ([place]): (6) obeys commands [place] Total: 14 - Physical Exam General Appearance: no apparent distress Eye Exam: bilateral eye: normal inspection, PERRL, EOMI Ears, Nose, Throat Exam: normal ENT inspection, TMs normal, pharynx normal, moist mucous membranes Neck Exam: normal inspection, non-tender, supple, full range of motion, No men ingismus, No mass, No Brudzinski, No Kernig's, No carotid bruit Respiratory: normal breath sounds, lungs clear, airway intact, No respiratory distress Cardiovascular: regular rate/rhythm, normal heart sounds, normal peripheral pulses, capillary refill <2 sec, No murmur Gastrointestinal: soft, normal bowel sounds, No tenderness Back Exam: normal inspection, normal range of motion, No CVA tenderness, No vertebral tenderness Extremity Exam: normal inspection, normal range of motion Peripheral Pulses: carotid (R): 2+, carotid (L): 2+ Mental Status: depressed affect, disoriented to place, disoriented to time dye room helper Exam: normal hearing, normal speech, No abnormal gag reflex Motor/Sensory: no motor deficit, no sensory deficit, no pronator drift, negative Babinski's sign DTR: bicep (R): 2+, bicep (L): 2+ Skin Exam: normal color, warm, dry, No rash SpO2 Interpretation: normal SpO2: 99 O2 Delivery: Room Air - Course Nursing assessment & vital signs reviewed: Yes EKG Interpreted by Me: RATE (NSR/Rate 87/Mildly prolonged QTc/RBBB/Nonspecific ST changes) - CT Exams Head CT Interpretation: Discussed w/radiologist (NAD), Tele-radiologist Report Other CT Interpretation: Tele-radiologist Report (CTA head/neck WNL) Ordered Tests: Active Orders 24 hr Category Date Time Status EKG-ER Only STAT Care 02/19/23 20:39 Completed Murcia [Catheter-[place] Murcia] STAT Care 02/19/23 21:03 Completed IV Insertion STAT Care 02/19/23 21:01 Completed IV Insertion-2nd Peripheral STAT Care 02/19/23 21:[address] ANGIOGRAPHY NECK [CT] Stat Exams 02/19/23 22:33 Completed CTA HEAD W AND/OR WO CONTRAST [CT] Stat Exams 02/19/23 22:54 Completed HEAD WITHOUT CONTRAST [CT] Stat Exams 02/19/23 20:39 Completed ACETAMINOPHEN Stat Lab 02/19/23 20:45 Completed CBC W DIFF Stat Lab 02/19/23 20:45 Completed CMP Stat Lab 02/19/23 20:45 Completed CULTURE,URINE Stat Lab 02/19/23 20:59 Received D-DIMER QUANTITATIVE Stat Lab 02/19/23 21:53 Completed ETHYL ALCOHOL Stat Lab 02/19/23 20:45 Completed Lactic Acid Stat Lab 02/19/23 20:43 Completed PROTIME WITH INR Stat Lab 02/19/23 20:45 Completed PTT Stat Lab 02/19/23 20:45 Completed SALICYLATE Stat Lab 02/19/23 20:45 Completed TROPONIN Q4H Lab 02/19/23 20:45 Completed TROPONIN Q4H Lab 02/20/23 00:45 Completed UA W/RFX UR CULTURE Stat Lab 02/19/23 20:59 Completed Urine Triage Profile Stat Lab 02/19/23 20:59 Completed Lab/Rad Data: Laboratory Result Diagrams 02/19/23 20:45 02/19/23 20:45 Laboratory Results 02/20/23 02/19/23 02/19/23 Range/Units 00:45 Unknown 21:53 WBC (4.0-10.5) x10^3/uL RBC (4.1-5.4) x10^6/uL Hgb (12.0-16.0) g/dL Hct (35-47) % MCV (78-100) fL MCH (26-32) pg MCHC (32-36) g/dL RDW (11.5-14.0) % Plt Count (150-450) x10^3/uL MPV (7.5-11.0) fL Gran % (36.0-66.0) % Immature Gran % (Auto) (0.00-0.4) % Nucleat RBC Rel Count (0.00-0.1) % Eos # (Auto) (0-0.5) x10^3/uL Immature Gran # (Auto) (0.00-0.03) x10^3u/L Absolute Lymphs (auto) (1.0-4.6) x10^3/uL Absolute Monos (auto) (0.0-1.3) x10^3/uL Absolute Nucleated RBC (0.00-0.01) x10^3u/L Lymphocytes % (24.0-44.0) % Monocytes % (0.0-12.0) % Eosinophils % (0.00-5.0) % Basophils % (0.0-0.4) % Absolute Granulocytes (1.4-6.9) x10^3/uL Basophils # (0-0.4) x10^3/uL PT (9.4-12.5) SECONDS INR (0.8-3.0) APTT (25.1-36.5) SECONDS D-Dimer 0.41 (0.0-0.50) mg/L Sodium (137-145) mmol/L Potassium (3.5-5.1) mmol/L Chloride (98-107) mmol/L Carbon Dioxide (22-30) mmol/L Anion Gap (5-15) MEQ/L BUN (7-17) mg/dL Creatinine (0.52-1.04) mg/dL Estimated GFR ML/MIN Glucose (74-106) mg/dL Lactic Acid (0.4-2.0) Calcium (8.4-10.2) mg/dL Total Bilirubin (0.2-1.3) mg/dL AST (14-36) U/L ALT (0-35) U/L Alkaline Phosphatase (38-126) U/L Troponin I < 0.012 (0.000-0.034) ng/mL Serum Total Protein (6.3-8.2) g/dL Albumin (3.5-5.0) g/dL Urine Color (Yellow) Urine Appearance (Clear) Urine pH (4.6-8.0) Ur Specific [place] (1.005-1.030) Urine Protein (Negative) Urine Glucose (UA) (Negative) mg/dL Urine Ketones (Negative) Urine Blood (Negative) Urine Nitrite (Negative) Urine Bilirubin (Negative) Urine Urobilinogen (0.2) mg/dL Ur Leukocyte Esterase (Negative) U Hyaline Cast (Auto) (0-2) /LPF Urine Microscopic RBC (0-5) /HPF Urine Microscopic WBC (0-5) /HPF Ur Epithelial Cells (None Seen) /HPF Urine Bacteria (None Seen) /HPF Urine Culture Reflexed (NO) Salicylates (2-20) mg/dL Urine Opiates Level (NEGATIVE) Ur Methadone (NEGATIVE) Acetaminophen (10-30) ug/ml Urine Barbiturates (NEGATIVE) Ur Phencyclidine (PCP) (NEGATIVE) Urine Amphetamine (NEGATIVE) U Benzodiazepine Level (NEGATIVE) Urine Cocaine (NEGATIVE) Urine Marijuana (THC) (NEGATIVE) Ethyl Alcohol (0-10) mg/dL Influenza Type A Ag NEGATIVE (NEGATIVE) Influenza Type B Ag NEGATIVE (NEGATIVE) RSV (PCR) NEGATIVE (NEGATIVE) SARS-CoV-2 (PCR) NEGATIVE (NEGATIVE) 02/19/23 02/19/23 02/19/23 Range/Units 20:59 20:59 20:45 WBC (4.0-10.5) x10^3/uL RBC (4.1-5.4) x10^6/uL Hgb (12.0-16.0) g/dL Hct (35-47) % MCV (78-100) fL MCH (26-32) pg MCHC (32-36) g/dL RDW (11.5-14.0) % Plt Count (150-450) x10^3/uL MPV (7.5-11.0) fL Gran % (36.0-66.0) % Immature Gran % (Auto) (0.00-0.4) % Nucleat RBC Rel Count (0.00-0.1) % Eos # (Auto) (0-0.5) x10^3/uL Immature Gran # (Auto) (0.00-0.03) x10^3u/L Absolute Lymphs (auto) (1.0-4.6) x10^3/uL Absolute Monos (auto) (0.0-1.3) x10^3/uL Absolute Nucleated RBC (0.00-0.01) x10^3u/L Lymphocytes % (24.0-44.0) % Monocytes % (0.0-12.0) % Eosinophils % (0.00-5.0) % Basophils % (0.0-0.4) % Absolute Granulocytes (1.4-6.9) x10^3/uL Basophils # (0-0.4) x10^3/uL PT (9.4-12.5) SECONDS INR (0.8-3.0) APTT (25.1-36.5) SECONDS D-Dimer (0.0-0.50) mg/L Sodium (137-145) mmol/L Potassium (3.5-5.1) mmol/L Chloride (98-107) mmol/L Carbon Dioxide (22-30) mmol/L Anion Gap (5-15) MEQ/L BUN (7-17) mg/dL Creatinine (0.52-1.04) mg/dL Estimated GFR ML/MIN Glucose (74-106) mg/dL Lactic Acid (0.4-2.0) Calcium (8.4-10.2) mg/dL Total Bilirubin (0.2-1.3) mg/dL AST (14-36) U/L ALT (0-35) U/L Alkaline Phosphatase (38-126) U/L Troponin I < 0.012 (0.000-0.034) ng/mL Serum Total Protein (6.3-8.2) g/dL Albumin (3.5-5.0) g/dL Urine Color Yellow (Yellow) Urine Appearance Clear (Clear) Urine pH 6.0 (4.6-8.0) Ur Specific [place] 1.010 (1.005-1.030) Urine Protein Negative (Negative) Urine Glucose (UA) Negative (Negative) mg/dL Urine Ketones Negative (Negative) Urine Blood Negative (Negative) Urine Nitrite Negative (Negative) Urine Bilirubin Negative (Negative) Urine Urobilinogen 0.2 (0.2) mg/dL Ur Leukocyte Esterase Negative (Negative) U Hyaline Cast (Auto) NONE SEEN (0-2) /LPF Urine Microscopic RBC 0-2 (0-5) /HPF Urine Microscopic WBC 0-2 (0-5) /HPF Ur Epithelial Cells None Seen (None Seen) /HPF Urine Bacteria None Seen (None Seen) /HPF Urine Culture Reflexed NO (NO) Salicylates (2-20) mg/dL Urine Opiates Level NEGATIVE (NEGATIVE) Ur Methadone NEGATIVE (NEGATIVE) Acetaminophen (10-30) ug/ml Urine Barbiturates NEGATIVE (NEGATIVE) Ur Phencyclidine (PCP) NEGATIVE (NEGATIVE) Urine Amphetamine POSITIVE (NEGATIVE) U Benzodiazepine Level NEGATIVE (NEGATIVE) Urine Cocaine NEGATIVE (NEGATIVE) Urine Marijuana (THC) NEGATIVE (NEGATIVE) Ethyl Alcohol (0-10) mg/dL Influenza Type A Ag (NEGATIVE) Influenza Type B Ag (NEGATIVE) RSV (PCR) (NEGATIVE) SARS-CoV-2 (PCR) (NEGATIVE) 09/04/23 09/04/23 09/04/23 Range/Units 20:45 20:45 20:45 WBC 7.7 (4.0-10.5) x10^3/uL RBC 4.35 (4.1-5.4) x10^6/uL Hgb 12.4 (12.0-16.0) g/dL Hct 38.2 (35-47) % MCV 87.8 (78-100) fL MCH 28.5 (26-32) pg MCHC 32.5 (32-36) g/dL RDW 13.9 (11.5-14.0) % Plt Count 346 (150-450) x10^3/uL MPV 9.3 (7.5-11.0) fL Gran % 52.9 (36.0-66.0) % Immature Gran % (Auto) 0.3 (0.00-0.4) % Nucleat RBC Rel Count 0.0 (0.00-0.1) % Eos # (Auto) 0.01 (0-0.5) x10^3/uL Immature Gran # (Auto) 0.02 (0.00-0.03) x10^3u/L Absolute Lymphs (auto) 2.71 (1.0-4.6) x10^3/uL Absolute Monos (auto) 0.86 (0.0-1.3) x10^3/uL Absolute Nucleated RBC 0.00 (0.00-0.01) x10^3u/L Lymphocytes % 35.2 (24.0-44.0) % Monocytes % 11.2 (0.0-12.0) % Eosinophils % 0.1 (0.00-5.0) % Basophils % 0.3 (0.0-0.4) % Absolute Granulocytes 4.07 (1.4-6.9) x10^3/uL Basophils # 0.02 (0-0.4) x10^3/uL PT 10.2 (9.4-12.5) SECONDS INR 0.93 (0.8-3.0) APTT 25.8 (25.1-36.5) SECONDS D-Dimer (0.0-0.50) mg/L Sodium 138 (137-145) mmol/L Potassium 3.6 (3.5-5.1) mmol/L Chloride 107 (98-107) mmol/L Carbon Dioxide 20 L (22-30) mmol/L Anion Gap 14.8 (5-15) MEQ/L BUN 8 (7-17) mg/dL Creatinine 0.68 (0.52-1.04) mg/dL Estimated GFR > 60.0 ML/MIN Glucose 105 (74-106) mg/dL Lactic Acid (0.4-2.0) Calcium 8.5 (8.4-10.2) mg/dL Total Bilirubin 0.20 (0.2-1.3) mg/dL AST 50 H (14-36) U/L ALT 54 H (0-35) U/L Alkaline Phosphatase 76 (38-126) U/L Troponin I (0.000-0.034) ng/mL Serum Total Protein 7.2 (6.3-8.2) g/dL Albumin 4.2 (3.5-5.0) g/dL Urine Color (Yellow) Urine Appearance (Clear) Urine pH (4.6-8.0) Ur Specific [place] (1.005-1.030) Urine Protein (Negative) Urine Glucose (UA) (Negative) mg/dL Urine Ketones (Negative) Urine Blood (Negative) Urine Nitrite (Negative) Urine Bilirubin (Negative) Urine Urobilinogen (0.2) mg/dL Ur Leukocyte Esterase (Negative) U Hyaline Cast (Auto) (0-2) /LPF Urine Microscopic RBC (0-5) /HPF Urine Microscopic WBC (0-5) /HPF Ur Epithelial Cells (None Seen) /HPF Urine Bacteria (None Seen) /HPF Urine Culture Reflexed (NO) Salicylates < 1.0 L (2-20) mg/dL Urine Opiates Level (NEGATIVE) Ur Methadone (NEGATIVE) Acetaminophen < 10 L (10-30) ug/ml Urine Barbiturates (NEGATIVE) Ur Phencyclidine (PCP) (NEGATIVE) Urine Amphetamine (NEGATIVE) U Benzodiazepine Level (NEGATIVE) Urine Cocaine (NEGATIVE) Urine Marijuana (THC) (NEGATIVE) Ethyl Alcohol < 10 (0-10) mg/dL Influenza Type A Ag (NEGATIVE) Influenza Type B Ag (NEGATIVE) RSV (PCR) (NEGATIVE) SARS-CoV-2 (PCR) (NEGATIVE) 02/19/23 Range/Units 20:43 WBC (4.0-10.5) x10^3/uL RBC (4.1-5.4) x10^6/uL Hgb (12.0-16.0) g/dL Hct (35-47) % MCV (78-100) fL MCH (26-32) pg MCHC (32-36) g/dL RDW (11.5-14.0) % Plt Count (150-450) x10^3/uL MPV (7.5-11.0) fL Gran % (36.0-66.0) % Immature Gran % (Auto) (0.00-0.4) % Nucleat RBC Rel Count (0.00-0.1) % Eos # (Auto) (0-0.5) x10^3/uL Immature Gran # (Auto) (0.00-0.03) x10^3u/L Absolute Lymphs (auto) (1.0-4.6) x10^3/uL Absolute Monos (auto) (0.0-1.3) x10^3/uL Absolute Nucleated RBC (0.00-0.01) x10^3u/L Lymphocytes % (24.0-44.0) % Monocytes % (0.0-12.0) % Eosinophils % (0.00-5.0) % Basophils % (0.0-0.4) % Absolute Granulocytes (1.4-6.9) x10^3/uL Basophils # (0-0.4) x10^3/uL PT (9.4-12.5) SECONDS INR (0.8-3.0) APTT (25.1-36.5) SECONDS D-Dimer (0.0-0.50) mg/L Sodium (137-145) mmol/L Potassium (3.5-5.1) mmol/L Chloride (98-107) mmol/L Carbon Dioxide (22-30) mmol/L Anion Gap (5-15) MEQ/L BUN (7-17) mg/dL Creatinine (0.52-1.04) mg/dL Estimated GFR ML/MIN Glucose (74-106) mg/dL Lactic Acid 1.5 (0.4-2.0) Calcium (8.4-10.2) mg/dL Total Bilirubin (0.2-1.3) mg/dL AST (14-36) U/L ALT (0-35) U/L Alkaline Phosphatase (38-126) U/L Troponin I (0.000-0.034) ng/mL Serum Total Protein (6.3-8.2) g/dL Albumin (3.5-5.0) g/dL Urine Color (Yellow) Urine Appearance (Clear) Urine pH (4.6-8.0) Ur Specific [place] (1.005-1.030) Urine Protein (Negative) Urine Glucose (UA) (Negative) mg/dL Urine Ketones (Negative) Urine Blood (Negative) Urine Nitrite (Negative) Urine Bilirubin (Negative) Urine Urobilinogen (0.2) mg/dL Ur Leukocyte Esterase (Negative) U Hyaline Cast (Auto) (0-2) /LPF Urine Microscopic RBC (0-5) /HPF Urine Microscopic WBC (0-5) /HPF Ur Epithelial Cells (None Seen) /HPF Urine Bacteria (None Seen) /HPF Urine Culture Reflexed (NO) Salicylates (2-20) mg/dL Urine Opiates Level (NEGATIVE) Ur Methadone (NEGATIVE) Acetaminophen (10-30) ug/ml Urine Barbiturates (NEGATIVE) Ur Phencyclidine (PCP) (NEGATIVE) Urine Amphetamine (NEGATIVE) U Benzodiazepine Level (NEGATIVE) Urine Cocaine (NEGATIVE) Urine Marijuana (THC) (NEGATIVE) Ethyl Alcohol (0-10) mg/dL Influenza Type A Ag (NEGATIVE) Influenza Type B Ag (NEGATIVE) RSV (PCR) (NEGATIVE) SARS-CoV-2 (PCR) (NEGATIVE) - Progress Progress Note: 02/20/23 01:18 Nursing note and vital signs reviewed No food or housing insecurities noted Additional history per /EMS All lab results reviewed and shared w pt/ All CT/CTA results reviewed and shared w pt/ Tele-neuro consult-No need for admit, symptoms most likely due to meds/sleep deprivation Pt wo focal weakness during entire stay. VSS stable w great airway during entire stay Counseled pt/family regarding: lab results, diagnosis, rad results Medical Desision Making - Independent Historian Additional History obtained from: Spouse - Discussion of managment Care discussed with:: specialist Reviewed:: Test results, Need for additional workup Agreed on:: Treatment plan - Diagnostic Testing Diagnostic test were ordered, analyzed, and reviewed by me: Yes Radiological Interpretation: Reviewed by me, Teleradiologist Report - Risk of complications The pt has a mod risk of morbidity or mortality based on: Need for prescription drug management - Departure Departure Disposition: Home Clinical Impression: Near syncope Condition: Stable Critical Care Time: No Referrals: CA BARBOSA [ACTIVE STAFF] - Follow up/PCP as directed Instructions: Delirium (Confusion) (DC), Near Fainting (DC) Additional Instructions: Follow up with your family MD in 1-2 days Return to ER for focal weakness, temperature greater than 100.5, or increasing confusion
[2023-02-19 21:48] LABS: Amphetamine,Urine POSITIVE (NEGATIVE); Barbiturate,Urine NEGATIVE (NEGATIVE); Benzodiazepine,Urine NEGATIVE (NEGATIVE); Cocaine,Urine NEGATIVE (NEGATIVE); Methadone,Urine NEGATIVE (NEGATIVE); Opiate,Urine NEGATIVE (NEGATIVE); PCP,Urine NEGATIVE (NEGATIVE); THC,Urine NEGATIVE (NEGATIVE)
[2023-02-19 23:18] LABS: INFLUENZA A NEGATIVE (NEGATIVE); INFLUENZA B NEGATIVE (NEGATIVE); RESPIRATORY SYNCTIAL VIRUS NEGATIVE (NEGATIVE); SARS-CoV-2 Xpert Express NEGATIVE (NEGATIVE)
--- NOTE | 2023-02-20 00:21 | XRAY ---
CLINICAL HISTORY:near syncope COMPARISON:None TECHNIQUE:Axial CT angiography of the head was done with and without contrast and sagittal and coronal reformats. FINDINGS: The intracranial internal carotid arteries appear normal in course and caliber. Bilateral anterior cerebral arteries appear normal in course and caliber. Bilateral middle cerebral arteries and their major branches appear normal in course and caliber. Bilateral posterior cerebral arteries show normal contrast opacification. origin of left STRIP CATCHER noted. The basilar artery and visualized bilateral vertebral arteries appear normal. No evidence of aneurysm or major vascular stenosis. IMPRESSION: Unremarkable CT angiography of the head Electronically Signed by: Will Salinas MD. (02/19/2023 23:19:00 FAMILY AND CONSUMER SCIENCES PROFESSOR)
--- NOTE | 2023-02-20 00:39 | XRAY ---
CLINICAL HISTORY:near syncope COMPARISON:None TECHNIQUE:CT of the neck angiography was performed with contrast in the arterial phase. Sagittal and coronal reconstructions were obtained FINDINGS: Aorta is seen opacifying with contrast and its main arterial branches in the neck. Both common carotid arteries appear unremarkable. The carotid bulbs appear unremarkable. Both internal carotid arteries appear unremarkable. Dominant right vertebral artery. The left vertebral artery and basal artery appear unremarkable. No evidence of high-grade stenosis in visualized posterior circulation of the brain No sizable cervical lymph nodes at any of the noted lymph node stations. Normal CT appearance of the nasopharynx and glottic region. The thyroid gland shows no definite abnormality. The visualized structures of the posterior fossa show no definite abnormality. Minimal degenerative changes in the visualized cervical spine. IMPRESSION: 1. No evidence of aortic dissection or aneurysm. 2. No evidence of high-grade stenosis in visualized carotid and vertebrobasilar circulation. Electronically Signed by: Will Salinas MD. (02/19/2023 23:36:59 HEALTH EQUIPMENT SERVICER)
[2023-02-20 01:10] VITALS: BP 146/88; PULSE 63; RESP 20; TEMP 97.5; O2SAT 99
== END 2023-02-20 01:30 | disposition home or self-care (01) ==
LOC: ED 20:35
DX: R55 Syncope and collapse (principal); R53.83 Other fatigue; I10 Essential (primary) hypertension; Z79.899 Other long term (current) drug therapy; Z28.310 Unvaccinated for COVID-19
CPT/HCPCS: 0241U; 36000; 36415; 51702; 70450; 70496; 70498; 80053; 80143; 80179; 80307; 81001; 82077; 83605; 84484; 85025; 85379; 85610; 85730; 87086; 93005; 99284